=== PATIENT | female | born 1980 | race African-American/Black ===

== ENCOUNTER 2017-10-24 07:17 | Emergency (ER) | payer OTHER ==
[~2017-10-24] VITALS: Ht 167.6 cm; Wt 104.5 kg
[2017-10-24 07:19] VITALS: BP 120/77
== END 2017-10-24 08:48 | disposition home or self-care (01) ==
LOC: EMS 07:18
DX: F32.9 Major depressive disorder, single episode, unspecified (principal); F15.93 Other stimulant use, unspecified with withdrawal
CPT/HCPCS: 99284

== ENCOUNTER 2018-12-24 11:02 | Emergency (ER) | payer OTHER ==
[~2018-12-24] VITALS: Ht 167.6 cm; Wt 107.3 kg
[2018-12-24 11:03] VITALS: BP 122/74
[2018-12-24 11:42] LABS: APPEARANCE,URINE CLEAR (CLEAR); BILIRUBIN,URINE NEGATIVE (NEGATIVE); GLUCOSE, URINE (UA) NEGATIVE (NEGATIVE); KETONES,URINE NEGATIVE (NEGATIVE); LEUKOCYTE ESTERASE ,URINE NEGATIVE (NEGATIVE); NITRATE,URINE POSITIVE (NEGATIVE); OCCULT BLOOD,URINE NEGATIVE (NEGATIVE); PH,URINE 6.5 (5.0-8.0); PROTEIN,URINE NEGATIVE (NEGATIVE)
[2018-12-24 12:02] LABS: BACTERIA,URINE Many /HPF (None Seen); RBC,URINE 0-2 /HPF (0-2); SQUAMOUS EPITHELIAL CELL,UR Moderate /LPF (None Seen); WBC,URINE None Seen /HPF (0-5)
== END 2018-12-24 11:20 | disposition left against medical advice (07) ==
LOC: EMS 11:03
DX: R10.13 Epigastric pain (principal); R11.2 Nausea with vomiting, unspecified; M54.9 Dorsalgia, unspecified; Z53.21 Procedure and treatment not carried out due to patient leaving prior to being seen by health care provider
CPT/HCPCS: 87086

== ENCOUNTER 2023-11-10 06:54 | Emergency (ER) | payer OTHER ==
[~2023-11-10] VITALS: Ht 167.6 cm; Wt 127.3 kg
[2023-11-10 07:10] VITALS: BP 114/75; PULSE 95; RESP 18; TEMP 98.1
[2023-11-10] MEDS ORDERED: PENI500T2 PO (08:20)
== END 2023-11-10 09:42 | disposition home or self-care (01) ==
LOC: EMS 06:56
DX: K02.9 Dental caries, unspecified (principal); R22.43 Localized swelling, mass and lump, lower limb, bilateral; Z79.899 Other long term (current) drug therapy
CPT/HCPCS: 99283; Z7502